=== PATIENT | female | born 1950 | race Caucasian/White ===

== ENCOUNTER → 2018-01-03 12:43 | Outpatient (CLI) | payer MEDICARE, OTHER, SELFPAY ==
--- NOTE | 2018-01-03 | DI.MG.S_ITS ---
BILATERAL DIGITAL SCREENING MAMMOGRAM 3D/2D WITH CAD: 01/03/2018 CLINICAL: Routine screening. Family history of breast cancer. Comparison is made to exams dated: 12/20/2016 mammogram - [facility], 11/01/2014 mammogram, and 10/29/2013 mammogram - [facility]. The tissue of both breasts is heterogeneously dense. This may lower the sensitivity of mammography. Current study was also evaluated with a Computer Aided Detection (CAD) system. There are clustered calcifications in the right breast central to the nipple anterior depth. There also are clustered calcifications in the right breast anterior depth lateral region seen on the craniocaudal view only. No other significant masses, calcifications, or other findings are seen in either breast. IMPRESSION: INCOMPLETE: NEEDS ADDITIONAL IMAGING EVALUATION The clustered calcifications in the right breast central to the nipple anterior depth are indeterminate. Spot magnification views are recommended. The clustered calcifications in the right breast anterior depth lateral region seen on the craniocaudal view only are indeterminate. Spot magnification views are recommended. This exam was interpreted at Station ID: [id number]. NOTE: For mammograms, a report in lay terms will be sent to the patient. Approximately 15% of breast malignancies will not be visualized mammographically. In the management of a palpable breast mass, a negative mammogram must not discourage biopsy of a clinically suspicious lesion. Electronically Signed By: Constance van/kalani:01/03/2018 17:09:20 letter sent: Additional Imaging Needed ACR BI-RADS Category 0: Incomplete 3340F
== END ==
PROVIDERS: Visit Provider Internal Medicine
DX: Z12.31 Encounter for screening mammogram for malignant neoplasm of breast (principal); Z80.3 Family history of malignant neoplasm of breast
CPT/HCPCS: 77063; 77067

== ENCOUNTER 2018-01-14 13:53 | Day surgery (SDC) | payer MEDICARE, OTHER, SELFPAY ==
[2018-01-14 14:57] VITALS: BP 142/77; PULSE 71; RESP 16; TEMP 36.8; O2SAT 100; BMI 29.7
[2018-01-14] MEDS: SODIUM CHLORIDE 0.9% 1,000 ML 200 ML IV (15:03)
--- NOTE | 2018-01-14 15:11 | PM.HP.1 ---
History of Present Illness Date Patient Seen: 01/14/18 Time Patient Seen: 15:11 Chief complaint: [id number] Narrative: Very pleasant 67-year-old lady who is well known to me from prior visits. Her last colonoscopy was 5 years ago and at that time she had some benign polyps removed. She denies any new problems or symptoms related to the function of her GI tract. She reports she needs colonoscopy as per the health maintenance program. Patient History Family & Social History Family History: Reviewed 01/14/18 by Tika Lewis MD Social History: household members spouse Meds Home Medications Medication Instructions Recorded Confirmed Type citalopram [Celexa] 20 mg PO DAILY 01/14/18 01/14/18 History hydrochlorothiazide 25 mg PO DAILY 01/14/18 01/14/18 History ibuprofen 600 mg PO BID 01/14/18 01/14/18 History levothyroxine [Synthroid] 125 mcg PO DAILY 01/14/18 01/14/18 History losartan 50 mg PO DAILY 01/14/18 01/14/18 History pravastatin 40 mg PO DAILY 01/14/18 01/14/18 History Allergies Allergy/AdvReac Type Severity Reaction Status Date / Time codeine Allergy Severe Wheezing Verified 01/14/18 14:46 Penicillins Allergy Severe Hives Verified 01/14/18 14:46 Sulfa (Sulfonamide Allergy Severe Hives Verified 01/14/18 14:46 Antibiotics) Review of Systems Review of Systems All systems reviewed & are unremarkable except as noted in HPI and below Exam Vital Signs (past 8 hours): - 01/14/18 14:57 Temperature 98.2 F Pulse Rate 71 Respiratory Rate 16 Blood Pressure 142/77 H Pulse Oximetry 100 Oxygen Delivery Method Room Air Narrative Exam Narrative: Very pleasant well-nourished well-developed lady in no distress HEENT: Normocephalic atraumatic, pupils equal round reactive to light accommodation with anicteric sclera Lungs: Clear to auscultation bilaterally Heart: Regular rate and rhythm without murmur or gallop Abdomen: Soft, nontender, active bowel sounds Extremities: Warm and well perfused without edema Assessment & Plan Plan: Assessment/Plan Narrative: Estela 67-year-old lady here for a screening colonoscopy due to a history of colon polyps. We discussed the risks and benefits of the procedure and she has expressed a desire to complete it today
[2018-01-14 15:45] VITALS: BP 120/79; PULSE 72; RESP 11; TEMP 36.6; O2SAT 95
--- NOTE | 2018-01-14 15:45 | PM.OP.1 ---
Operative Date/Time/Diagnoses Date of procedure: 01/14/18 Time of procedure: 15:45 Pre-op diagnosis: Personal history of colon polyps Post-op diagnosis: same Procedure & Clinicians Procedure: Colonoscopy to the cecum Same procedure as scheduled: Yes Indications: Last colonoscopy 5 years ago Surgeon: Tika Lewis Anesthesia Type: Sedation (Versed 8 mg; fentanyl 250 mcg) Operative Notes Findings: 1. Excellent prep 2. No polyps or mass lesions 3. No AV malformations 4. Mildly tortuous sigmoid colon 5. Minimal sigmoid diverticulosis 6. Grade 1-2 internal hemorrhoids 7. Essentially normal colonoscopy for a Closure Type: not applicable Specimen(s): none sent Procedure in detail: After obtaining informed consent, the patient was brought to the GI suite and placed in the left lateral decubitus position on the examination table. After placement of appropriate monitors, the patient was given incremental doses of Versed and Fentanyl until an appropriate level of sedation was achieved. A time out was held per SCOAP protocol. A digital rectal examination was performed and did not reveal any masses or obstructing lesions. The colonoscope was gently passed into the patient's anus and the entire colon navigated to the level of the cecum with moderate difficulty due to colon tortuosity. Once in the cecum, the scope was withdrawn being sure to go before and beyond all mucosal folds and prominences and get an excellent examination. The findings are noted above. At the level of the rectal vault, the scope was retroflexed and the internal anal canal was examined. The scope was straightened and air aspirated from the colon. The instrument was removed from the patient's body and the procedure was concluded. The patient was allowed to awaken from sedation without difficulty and taken to the post-anesthesia care unit in good condition. Total sedation time 28 min Total colonoscopy withdrawal time 11 min Complications: none Condition: stable Disposition: PACU Plan for aftercare: 1. Discharge to home 2. Plan for next colonoscopy in 5 years or as clinically indicated
[2018-01-14] MEDS: fentaNYL 250 MCG/5 ML INJ IV (15:46)
[2018-01-14] MEDS: MIDAZOLAM 5 MG/5 ML VIAL IV (15:46)
[2018-01-14 15:50] VITALS: BP 116/66; PULSE 70; RESP 11; O2SAT 95
[2018-01-14 15:55] VITALS: BP 110/62; PULSE 72; RESP 10; TEMP 36.8; O2SAT 95
[2018-01-14 16:07] VITALS: BP 103/66; PULSE 70; RESP 10; TEMP 36.8; O2SAT 95
== END 2018-01-14 16:17 | disposition home or self-care (01) ==
PROVIDERS: Visit Provider Surgery
PROC: 0DJD8ZZ Inspection of Lower Intestinal Tract, Via Natural or Artificial Opening Endoscopic (ICD-10-PCS; CPT 45378; principal; 2018-01-14 15:00)
DX: Z86.010 Personal history of colon polyps (principal); K57.30 Diverticulosis of large intestine without perforation or abscess without bleeding; K64.1 Second degree hemorrhoids
CPT/HCPCS: G0105; 99152; 99153; J2250; J3010

== ENCOUNTER → 2018-01-17 08:44 | Outpatient (CLI) | payer MEDICARE, OTHER, SELFPAY ==
--- NOTE | 2018-01-17 | DI.MG.S_ITS ---
UNILATERAL RIGHT DIGITAL DIAGNOSTIC MAMMOGRAM 3D/2D WITH ADDITIONAL VIEWS: 01/17/2018 CLINICAL: Routine screening. Family history of breast cancer. Comparison is made to exams dated: 01/03/2018 mammogram, 12/20/2016 mammogram - [facility], and 11/01/2014 mammogram - [facility]. The tissue of right breast is heterogeneously dense. This may lower the sensitivity of mammography. The clustered calcifications in the right breast central to the nipple anterior depth are not seen in additional views and likely represent artifact on generated views. The clustered calcifications in the right breast anterior depth lateral region seen on the craniocaudal view only are not seen in additional views and likely represent artifact on generated views. No other significant masses or calcifications are seen in the breast. IMPRESSION: There is no mammographic evidence of malignancy. Return to annual mammogram screening schedule is recommended.(01/04/2019) This exam was interpreted at Station ID: [id number]. NOTE: For mammograms, a report in lay terms will be sent to the patient. Approximately 15% of breast malignancies will not be visualized mammographically. In the management of a palpable breast mass, a negative mammogram must not discourage biopsy of a clinically suspicious lesion. Electronically Signed By: Constance Adams M.D. lk/:01/17/2018 09:47:36 letter sent: Normal Exam ACR BI-RADS Category 2: Benign Finding(s) 3342F
== END ==
PROVIDERS: Visit Provider Internal Medicine
DX: R92.8 Other abnormal and inconclusive findings on diagnostic imaging of breast (principal); Z80.3 Family history of malignant neoplasm of breast
CPT/HCPCS: 77065; G0279

== ENCOUNTER → 2018-03-24 11:14 | Outpatient (CLI) | payer MEDICARE, OTHER, SELFPAY | PROVIDERS: PCP Internal Medicine; Visit Provider Internal Medicine | DX: R05 Cough (principal); R09.82 Postnasal drip ==

== ENCOUNTER → 2018-03-28 10:23 | Outpatient (CLI) | payer MEDICARE, OTHER, SELFPAY ==
--- NOTE | 2018-03-28 | DI.CT.S_ITS ---
PROCEDURE: CT SINUS SCREEN WO CON INDICATIONS: SINUSITIS TECHNIQUE: Noncontrast 3.0 mm axial images acquired from the frontal sinuses to the mid-sella, with coronal and sagittal reformats. For radiation dose reduction, the following was used: automated exposure control, adjustment of mA and/or kV according to patient size. COMPARISON: None. FINDINGS: Image quality: Excellent. Maxillary Sinuses: No bony remodeling or destruction. Sinuses are clear. Ethmoid Air Cells: No bony remodeling or destruction. Sinuses are clear. Sphenoid Sinuses: No bony remodeling or destruction. Sinuses are clear. Frontal Sinuses: No bony remodeling or destruction. Sinuses are clear. Ostiomeatal Complexes: Ostiomeatal complexes are patent, yet they are constitutionally narrowed, with bilateral Gerardo cells. Miscellaneous: Visualized intra-orbital contents are normal. 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 There is moderate leftward nasal septal deviation. IMPRESSION: No significant active paranasal sinus disease is seen. Constitutionally narrowed ostiomeatal complexes, with bilateral Gerardo cells. Bilateral sabi bullosa. Moderate leftward nasal septal deviation. Dictated by: Kana Wilson M.D. on 03/28/2018 at 10:11 Approved by: Kana Wilson M.D. on 03/28/2018 at 10:13
== END ==
PROVIDERS: PCP Internal Medicine; Visit Provider Internal Medicine
DX: J32.9 Chronic sinusitis, unspecified (principal); J34.3 Hypertrophy of nasal turbinates; J34.2 Deviated nasal septum; R05 Cough; J30.9 Allergic rhinitis, unspecified
CPT/HCPCS: 70486

== ENCOUNTER → 2018-11-25 09:05 | Outpatient (CLI) | payer MEDICARE, OTHER, SELFPAY ==
--- NOTE | 2018-11-25 | DI.ECHO.S_ITS ---
[facility] +---------+ : : [address] : : : : [address] : : : : Phone: [phone]+ Echocardiogram Report + + :Name: YAYO GUO Study Date: 11/25/2018 Height: 66 in : :[facility] Exam Location: IS Weight: 195 lb : : Gender: Female BSA: 2.0 m2 : :: 1950 Age: 68 yrs BP: 132/84 mmHg: :Reason For Study: SHORTNESS OF BREATH : : Performed By: Star Mak : :Referring: LAM ALLEN : + + Interpretation Summary The left ventricle is normal in size. The ejection fraction is estimated to be 60-65%. The right ventricle is normal in size and function. There is mild aortic regurgitation. The IVC is of normal diameter and collapses greater than 50% with a sniff. This suggests a low right atrial pressure of 3 mm Hg. Procedure: A two-dimensional transthoracic echocardiogram with color flow and Doppler was performed. The study quality was technically adequate. There is no prior echocardiogram noted for this patient. The patient was in normal sinus rhythm during the exam. Left Ventricle: The left ventricle is normal in size. Proximal septal thickening is noted. There is no echo evidence for significant left ventricular outflow tract obstruction. There is no thrombus. The ejection fraction is estimated to be 60-65%. There are no focal wall motion abnormalities. Diastolic parameters suggest a relaxation abnormality of the left ventricle, consistent with probable normal filling pressures. Right Ventricle: The right ventricle is normal in size and function. Atria: The left atrium is mildly dilated. Right atrial size is normal. The interatrial septum is intact with no evidence for an atrial septal defect. Mitral Valve: The mitral valve leaflets are slightly calcified. There is trace mitral regurgitation. Aortic Valve: The aortic valve is trileaflet. The aortic valve opens well. There is mild aortic regurgitation. Tricuspid Valve: The tricuspid valve is normal in structure and function. Pulmonary artery pressures cannot be estimated because of the lack of a measurable TR jet velocity. There is trace tricuspid regurgitation. Pulmonic Valve: The pulmonic valve is normal in structure and function. There is trace pulmonic regurgitation. Great Vessels: The aortic root is normal size. The dimensions of the ascending aorta are normal. The pulmonary artery is normal size. The IVC is of normal diameter and collapses greater than 50% with a sniff. This suggests a low right atrial pressure of 3 mm Hg. Pericardium/ Pleura There is no pericardial effusion. There is no pleural effusion. MMode/2D Measurements & Calculations LVIDd: 4.5 cm LVOT diam: 2.1 cm LVIDs: 2.8 cm Ao root diam: 2.8 cm FS: 38.7 % Aortic Jxn: 2.2 cm EPSS: 0.31 cm asc Aorta Diam: 3.4 cm IVSd: 1.1 cm Ao Arch Diam (Prox Trans): 2.4 cm LVPWd: 0.91 cm LV levin. diameter/BSA (cm/m^2): 2.3 LV sys. diameter/BSA (cm/m^2): 1.4 LA dimension: 4.2 cm RA long axis: 5.0 cm LA A2 area: 20.8 cm2 RA area: 16.4 cm2 LA A4 area: 21.5 cm2 RA vol: 45.7 ml LA length (vol): 5.1 cm RA : 23.1 ml/m2 LA vol: 74.6 ml IVC diam: 1.7 cm LA vol index: 37.7 ml/m2 Doppler Measurements & Calculations Ao V2 max: 160.6 cm/sec LVOT Max Avila: 107.8 cm/sec Ao V2 mean: 118.0 cm/sec LV V1 max P.7 mmHg Ao max P.3 mmHg LV V1 VTI: 22.8 cm Ao mean P.0 mmHg TIMOTHY(I,D): 2.3 cm2 Ao V2 VTI: 34.0 cm TIMOTHY(V,D): 2.3 cm2 sev ratio: 0.67 TIMOTHY indexed to BSA (cm^2/m^2): 1.2 AI P1/2t: 531.8 msec AI dec slope: 264.1 cm/sec2 MV E max avila: 75.8 cm/sec PA V2 max: 101.2 cm/sec MV A max avila: 90.0 cm/sec PA V2 mean: 74.3 cm/sec MV E/A: 0.84 PA mean P.4 mmHg Med Peak E' Avila: 5.9 cm/sec PA pr(Accel): 54.0 mmHg E/E' med: 12.9 PA Accel Time: 0.04 sec Lat Peak E' Avila: 7.2 cm/sec E/E' lat: 10.5 E/e' average: 11.7 MV dec time: 0.25 sec SV(LVOT): 79.3 ml Reading Physician:01:41 PM
== END ==
PROVIDERS: PCP Physician Assistant; Visit Provider Physician Assistant
DX: I35.1 Nonrheumatic aortic (valve) insufficiency (principal); R06.02 Shortness of breath
CPT/HCPCS: 93306

== ENCOUNTER → 2019-01-26 10:53 | Outpatient (CLI) | payer MEDICARE, OTHER, SELFPAY ==
--- NOTE | 2019-01-30 16:13 | PM.PFT.1 ---
Pulmonary Function Test Referral & Results Date Patient Seen: 01/26/19 Requesting provider: Crescencio Lamas Results: The spirometry demonstrates an FVC of 2.57 L which is 76% of predicted. The FEV1 was measured at 1.96 L which is 76% of predicted. The FEV1/FVC ratio was 76 which is 90% of predicted. Following the administration of bronchodilator there was a 23% improvement in FEF 25-75%. Lung volumes show an SVC of 2.80 L which is 89% of predicted. The diffusing capacity was measured at 24.16 which is 89% of predicted. No hemoglobin value was provided, so no correction for potential anemia could be made, if appropriate. The maximum voluntary ventilation was reduced Interpretation: This study demonstrates mild obstructive lung disease based on reduction FEV1. There is minimal evidence of benefit following bronchodilator particularly small airway flow based on improvement in FEF 25-75% as above There may be minimal restrictive lung disease present as well based on minimal reduction in SVC Diffusing capacity is minimally reduced suggesting an element of disease at the capillary alveolar level as well Clinical correlation suggested
== END ==
PROVIDERS: PCP Physician Assistant; Visit Provider Internal Medicine Cardiovascular Disease
DX: R06.09 Other forms of dyspnea (principal); J98.8 Other specified respiratory disorders
CPT/HCPCS: 94060; 94726; 94729

== ENCOUNTER → 2020-03-01 12:03 | Outpatient (CLI) | payer MEDICARE, OTHER, SELFPAY ==
--- NOTE | 2020-03-01 12:05 | DI.MG.S_ITS ---
BILATERAL DIGITAL SCREENING MAMMOGRAM 3D/2D WITH CAD: 03/01/2020 CLINICAL: Routine screening. Family history of breast cancer. Comparison is made to exams dated: 01/17/2018 mammogram, 01/03/2018 mammogram, 12/20/2016 mammogram - [facility], 11/01/2014 mammogram, 10/29/2013 mammogram, and 06/16/2012 mammogram - [facility]. There are scattered fibroglandular elements in both breasts. Current study was also evaluated with a Computer Aided Detection (CAD) system. No significant masses, calcifications, or other findings are seen in either breast. There has been no significant interval change. IMPRESSION: NEGATIVE There is no mammographic evidence of malignancy. A 1 year screening mammogram is recommended. This exam was interpreted at Station ID: [id number]. NOTE: For mammograms, a report in lay terms will be sent to the patient. Approximately 15% of breast malignancies will not be visualized mammographically. In the management of a palpable breast mass, a negative mammogram must not discourage biopsy of a clinically suspicious lesion. Electronically Signed By: Mathieu edwards/kalani:03/01/2020 17:03:52 letter sent: Normal Exam ACR BI-RADS Category 1: Negative 3341F
== END ==
PROVIDERS: PCP Physician Assistant; Referring Provider Physician Assistant; Visit Provider Physician Assistant
DX: Z12.31 Encounter for screening mammogram for malignant neoplasm of breast (principal); Z80.3 Family history of malignant neoplasm of breast
CPT/HCPCS: 77063; 77067

== ENCOUNTER → 2021-04-11 15:12 | Outpatient (CLI) | payer MEDICARE, OTHER, SELFPAY ==
--- NOTE | 2021-04-11 15:14 | DI.MG.S_ITS ---
BILATERAL DIGITAL SCREENING MAMMOGRAM 3D/2D WITH CAD: 04/11/2021 CLINICAL: Routine screening. Family history of breast cancer. Comparison is made to exams dated: 03/01/2020 mammogram, 01/17/2018 mammogram, 01/03/2018 mammogram, and 12/20/2016 mammogram - [facility]. There are scattered fibroglandular elements in both breasts. Current study was also evaluated with a Computer Aided Detection (CAD) system. No significant masses, calcifications, or other findings are seen in either breast. There has been no significant interval change. IMPRESSION: NEGATIVE There is no mammographic evidence of malignancy. A 1 year screening mammogram is recommended. This exam was interpreted at Station ID: [id number]. NOTE: For mammograms, a report in lay terms will be sent to the patient. Approximately 15% of breast malignancies will not be visualized mammographically. In the management of a palpable breast mass, a negative mammogram must not discourage biopsy of a clinically suspicious lesion. Electronically Signed By: Valdemar guido/kalani:04/11/2021 16:47:20 letter sent: Normal Exam ACR BI-RADS Category 1: Negative 3341F
== END ==
PROVIDERS: PCP Nurse Practitioner; Referring Provider Nurse Practitioner; Visit Provider Nurse Practitioner
DX: Z12.31 Encounter for screening mammogram for malignant neoplasm of breast (principal); Z80.3 Family history of malignant neoplasm of breast
CPT/HCPCS: 77063; 77067

== ENCOUNTER → 2022-06-04 10:55 | Outpatient (CLI) | payer MEDICARE, OTHER, SELFPAY ==
--- NOTE | 2022-06-04 | DI.MG.S_ITS ---
BILATERAL DIGITAL SCREENING MAMMOGRAM 3D/2D WITH CAD: 06/04/2022 CLINICAL: Routine screening. Family history of breast cancer. Comparison is made to exams dated: 04/11/2021 mammogram, 03/01/2020 mammogram, 01/03/2018 mammogram - [facility], and 11/01/2014 mammogram - [facility]. There are scattered areas of fibroglandular density in both breasts (category b / 25%-50% glandular tissue). Current study was also evaluated with a Computer Aided Detection (CAD) system. No significant masses, calcifications, or other findings are seen in either breast. There has been no significant interval change. IMPRESSION: NEGATIVE There is no mammographic evidence of malignancy. A 1 year screening mammogram is recommended. Based on the Tyrer Cuzick model (a risk assessment model) the patient's lifetime risk is 5.9% and her 10 year risk is 3.5%. According to the ACR, ACS, and NCCN guidelines, an annual breast MRI exam along with mammogram is recommended if the patient's lifetime risk is 20% or greater. This exam was interpreted at Station ID: [id number]. NOTE: For mammograms, a report in lay terms will be sent to the patient. Approximately 15% of breast malignancies will not be visualized mammographically. In the management of a palpable breast mass, a negative mammogram must not discourage biopsy of a clinically suspicious lesion. Electronically Signed By: Mathieu edwards/kalani:06/04/2022 13:17:13 letter sent: Normal Exam ACR BI-RADS Category 1: Negative 3341F
== END ==
PROVIDERS: PCP Nurse Practitioner; Referring Provider Nurse Practitioner; Visit Provider Nurse Practitioner
DX: Z12.31 Encounter for screening mammogram for malignant neoplasm of breast (principal); Z80.3 Family history of malignant neoplasm of breast
CPT/HCPCS: 77063; 77067

== ENCOUNTER 2022-10-01 12:04 | Day surgery (SDC) | payer MEDICARE, OTHER, SELFPAY ==
--- NOTE | 2022-10-01 | PATH_ITS ---
[facility] Accession Number: [id number] No. of containers..03 Tissue . 01 Material submitted: . PART A: colon - CECUM POLYP PART B: colon - ASCENDING COLON POLYP PART C: colon - SIGMOID POLYP . 01 Diagnosis: A. Cecal Polyp, Biopsy: Tubular adenoma. . B. Ascending Colon Polyp, Biopsy: Tubular adenoma. . C. Sigmoid Colon Polyp, Biopsy: Benign fibroblastic polyp. No evidence of malignancy. [facility] 10/05/2022 1438 Local . 01 Electronically signed: . Pretty Sheets MD, Pathologist NPI- [id number] . 01 Gross description: . Part A: CECUM POLYP: Received in formalin is 1 fragment(s) of horowitz, soft tissue measuring 0.2 x 0.2 x 0.2 cm submitted entirely in 1 cassette(s) Part B: ASCENDING COLON POLYP: Received in formalin are 3 fragment(s) of horowitz, soft tissue measuring 0.2 x 0.2 x 0.2 cm to 0.4 x 0.4 x 0.4 cm submitted entirely in 1 cassette(s) Part C: SIGMOID POLYP: Received in formalin is 1 fragment(s) of horowitz, soft tissue measuring 0.4 x 0.4 x 0.4 cm submitted entirely in 1 cassette(s) /DALY 10/04/2022 0049 Local . 01 Microscopic: . C. The lesional spindled cells are negative for smooth muscle actin, S100, and DOG1, providing no evidence of leiomyoma, Schwann cell neoplasm, or gastrointestinal stromal tumor, respectively, and supporting the diagnosis of benign fibroblastic polyp. All controls stain as expected. . * This test was developed and its performance characteristics determined by [facility]. It has not been cleared or approved by the U.S. Food and Drug Administration. The FDA has determined that such clearance or approval is not necessary. This test is used for clinical purposes. It should not be regarded as investigational or for research. . 01 Pathologist provided ICD-10: D12.0, D12.2, D12.5 . 01 CPT . 263632, 074098, J20865, T78251 Specimen Comment: A courtesy copy of this report has been sent to [phone] Performed at: 01 [facility] [address] [place] [address], [place], [place] [id number] MD Valdemar Mccall MD Phone: [phone]
[2022-10-01 12:45] VITALS: BP 148/78; PULSE 62; RESP 17; TEMP 36.6; O2SAT 97; BMI 30.7
[2022-10-01] MEDS: LACTATED RINGERS 1,000 ML 100 ML IV (12:58)
--- NOTE | 2022-10-01 13:42 | PM.HP.1 ---
History of Present Illness History of Present Illness Date Patient Seen: 10/01/22 Time Patient Seen: 13:43 Chief complaint: Colonoscopy Narrative: Personal history of colon polyps. [facility] Medical History Hypercholesteremia Hypertension Hypothyroidism Surgical History H/O cardiac catheterization History of bladder surgery History of bunionectomy History of total abdominal hysterectomy Hx of appendectomy S/P rotator cuff repair Social History household members: spouse Smoking Status: Never smoker alcohol intake: current Meds Home Medications and Allergies Home Medications Medication Instructions Recorded Confirmed Type citalopram 20 mg tablet (Celexa) 20 mg PO DAILY 01/14/18 10/01/22 History hydrochlorothiazide 25 mg tablet 25 mg PO DAILY 01/14/18 10/01/22 History ibuprofen 600 mg tablet 600 mg PO BID PRN Pain (Scale 01/14/18 10/01/22 History Score 1-3) levothyroxine 125 mcg tablet 125 mcg PO DAILY 01/14/18 10/01/22 History (Synthroid) losartan 50 mg tablet 50 mg PO DAILY 01/14/18 10/01/22 History Allergies Allergy/AdvReac Type Severity Reaction Status Date / Time codeine Allergy Severe Wheezing Verified 01/14/18 14:46 Penicillins Allergy Severe Hives Verified 01/14/18 14:46 Sulfa (Sulfonamide Allergy Severe Hives Verified 01/14/18 14:46 Antibiotics) Review of Systems Review of Systems ROS: Yes All systems reviewed with the patient and are negative except as otherwise documented Exam Vital Signs (past 8 hours): - 10/01/22 12:45 Temperature 97.8 F Pulse Rate 62 Respiratory Rate 17 Blood Pressure 148/78 H Pulse Oximetry 97 Oxygen Delivery Method Room Air Oxygen Delivery Method Room Air Const General: cooperative HENMT Head: normal to inspection Eyes General: appearance normal, both eyes and all related structures Neck Neck: normal visual inspection Chest Chest: normal inspection of the chest Resp Effort & Inspection: normal respiratory effort Cardio Rate: regular rate GI Inspection: normal to inspection Skin General: no rashes or lesions noted Neuro General: patient alert and patient awake Extrem General: normal to inspection and no pedal edema Psych Appearance: grossly normal Assessment & Plan Assessment & Plan narrative: 72-year-old female a family history of multiple second-degree relatives with colon cancer and personal history of colon polyps here for colon cancer screening. Colonoscopy is pursued today.
--- NOTE | 2022-10-01 13:44 | PM.PREOP ---
Pre-operative Note Interval Note History & Physical reviewed/Exam performed by Physician: Yes Changes to H&P: No ASA Class (for procedural sedation): II
--- NOTE | 2022-10-01 14:51 | PM.OP.COLON ---
Operative Date/Time/Diagnoses Date of procedure: 10/01/22 Time of procedure: 14:51 Pre-op diagnosis: Personal history of colon polyps family history of colon cancer Post-op diagnosis: same Procedure & Clinicians Study performed: Colonoscopy with hot snare polypectomy, cold snare polypectomy, and cold forceps polypectomy. Same procedure as scheduled: Yes Indications: Personal history of colon polyps family history of colon cancer Surgeon: Riccardo Latif Procedure Notes SCOAP/Timeout: Done Procedure in detail: After the risks and benefits were explained, written and verbal informed consent was obtained. The patient was brought into the procedure room and placed into the left lateral decubitus position. Please see anesthesia notes for sedation details. Digital rectal examination was accomplished. The scope was introduced into the patient and advanced under direct visualization to the cecum as identified by the appendiceal orifice and ileocecal valve. The scope was slowly withdrawn to carefully examine the mucosa for any defects or lesions. Comprehensive imaging was accomplished throughout the rectum including the dentate line. The colon was decompressed, the scope was then removed from the patient who tolerated the procedure well. Pediatric colonoscope Bowel prep adequate Scope withdrawal time: 20 minutes Sedation minutes: 27 Complications: none Impression: There was diverticulosis from the sigmoid up through the splenic flexure. In the cecum there was a diminutive polyp removed with cold forceps. In the ascending colon there were 3 polyps. Two of these were removed with cold snare and a 3rd slightly larger 7 mm polyp was removed with hot snare. In the sigmoid colon there was an approximately 7 mm polyp removed with hot snare. No additional pathology was appreciated throughout. Patient had grade 2 internal hemorrhoids. Endoscopic diagnosis 1. Grade 2 hemorrhoids 2. Diverticulosis 3. Multiple colon polyps Post-procedure Plan for aftercare: 1. Await histopathology. 2. Repeat colonoscopy 3 years. Disposition: PACU
[2022-10-01 14:56] VITALS: BP 127/64; PULSE 56; RESP 14; TEMP 36.4; O2SAT 94
[2022-10-01 15:00] VITALS: BP 108/63; PULSE 62; RESP 13; O2SAT 93
[2022-10-01 15:06] VITALS: BP 131/100; PULSE 54; RESP 18; O2SAT 97
[2022-10-01 15:10] VITALS: BP 161/77; PULSE 61; RESP 15; TEMP 36.5; O2SAT 98
== END 2022-10-01 15:28 | disposition home or self-care (01) ==
PROVIDERS: PCP Nurse Practitioner; Referring Provider Internal Medicine Gastroenterology; Visit Provider Internal Medicine Gastroenterology
PROC: 0DJD8ZZ Inspection of Lower Intestinal Tract, Via Natural or Artificial Opening Endoscopic (ICD-10-PCS; CPT 45378; principal; 2022-10-01 13:30)
DX: Z12.11 Encounter for screening for malignant neoplasm of colon (principal); Z86.010 Personal history of colon polyps; Z80.0 Family history of malignant neoplasm of digestive organs; K57.30 Diverticulosis of large intestine without perforation or abscess without bleeding; K64.1 Second degree hemorrhoids; D12.0 Benign neoplasm of cecum; D12.2 Benign neoplasm of ascending colon
CPT/HCPCS: 45385; 45380; J2704

== ENCOUNTER → 2023-07-31 10:43 | Outpatient (CLI) | payer MEDICARE, OTHER, SELFPAY ==
--- NOTE | 2023-07-31 10:46 | DI.RAD.S_ITS ---
PROCEDURE: FL BARIUM SWALLOW INDICATIONS: Dysphagia, unspecified COMPARISON: None. FINDINGS: Function: Mild retention of contrast in the esophagus. This clears with subsequent fluid boluses. The esophagus appears somewhat patulous. There is normal transit of a calibrated barium tablet through the esophagus into the stomach. Morphology: No mucosal abnormality identified. Single contrast views show no esophageal strictures, extrinsic mass effects, or diverticula. Limited images of the stomach demonstrate normal appearance. IMPRESSION: No prince aspiration. The esophagus is somewhat patulous. Mild retention of fluid in the esophagus. Please see separately dictated speech pathologist's report. Dictated by: Mathieu Ortega M.D. on 07/31/2023 at 17:08 Approved by: Mathieu Ortega M.D. on 07/31/2023 at 17:10
--- NOTE | 2023-07-31 13:08 | ST.SWALLOW ---
Visit Care Team Role Provider Type BLAIRE Carlson Attending Provider Non-Staff Primary Care Provider Referring Provider Specialty: Nursing Address: [facility] [address], [address], [place], [address] Email: Modified Barium Swallow Study [employer] Modified Barium Swallow Study Start: 07/31/23 12:10 Freq: Status: Active Protocol: Document 07/31/23 12:11 LNK (Rec: 07/31/23 13:08 LNK [id number]) Modified Barium Swallow Study Total Time Visit Start Time 11:00 Visit Stop Time 11:30 Total Visit Minutes 30 Referral Referring Physician BLAIRE Haddad Reason for Referral frequent cough; dysphagia Setting Setting Outpatient Care Patient Information Identification Type Name,Date of Patient History Pt was seen for a Modified Barium Swallow study secondary to c/o frequent coughing when eating or drinking over the past 10 years. Pt also noted frequent PND as well as a possibility of allergies ( scheduled to see administrative office manager next month). Pt denied PMH of neurological diagnoses and injury or surgery in neck area. She also denied GERD diagnosis; however , noted that about 3-4 years ago, she tried Prilosec re: her cough, but noted no change with the medication and stopped taking it. Subjective Observations Pt entered the room stating she was anxious as she had a negative experience with barium as a young child. She was reassured that she her fears were recognized and her questions were answered. The procedures and instructions were described for the pt who indicated she understood and agreed to proceed. Patient Positioning Position View Lat-A/P Imaging Lateral View Textures Administered Trials Presented Thin Liquid via Spoon (IDDSI 0 ),Thin Liquid via Cup (IDDSI 0 ),Extremely Thick Liquid via Spoon (IDDSI 4),Regular (IDDSI 7) Barium Tablet Yes The IDDSI Framework Protocol: IDDSI.1 Oral Impairment Source: The Modified Barium Swallow Impairment Profile (MBSImP??) Lip Closure No labial escape Tongue Control During Bolus Hold Cohesive bolus between tongue to palatal seal Bolus Preparation/Mastication Timely & efficient chewing & mashing Bolus Transport/Lingual Motion Brisk tongue motion Oral Residue Trace residue lining oral structures Location Tongue Initiation of Pharyngeal Swallow Bolus head in valleculae Additional Oral Impairment Observations Pt OME and DKS were observed to be WNL. Natural dentition was noted and in good hygiene. Mastication demonstrated rotary chew pattern with good bolus preparation/formation, control and AP transition. Pharyngeal Impairment Source: The Modified Barium Swallow Impairment Profile (MBSImP??) Soft Palate Elevation No bolus between soft palate & pharyngeal wall Laryngeal Elevation Part.sup.move.thyroid cart/ part.approx.arytenoids to epiglot.petiole Anterior Hyoid Excursion Partial anterior movement Epiglottic Movement Complete inversion Laryngeal Vestibular Closure Complete; no air/contrast in laryngeal vestibule Pharyngeal Stripping Wave Present - complete Pharyngoesophageal Segment Opening Complete distention & complete duration; no obstruction of flow Tongue Base Retraction No contrast between tongue base & posterior pharyngeal wall Pharyngeal Residue Trace residue within/on pharyngeal structures Location Valleculae Additional Pharyngeal Impairment Overall, pharyngeal phase of Observations swallowing WNL. No obstruction of bolus flow through the pharynx to the esophagus was observed. No laryngeal penetration or tracheal aspiration was observed. Trace pooling of secretions was observed in the valeculla and cleared with subsequent swallow. Observed osrteophytes at C4-C5 and a CP bar in the lateral view of the upper esophagus. A/P View Textures Administered Trials Presented Thin Liquid via Cup (IDDSI 0) The IDDSI Framework Protocol: IDDSI.1 A/P View Observations Pharyngeal Contraction Complete Esophageal Clearance Upright Position Esophageal retention w/ regtrograde flow below pharyngoesoph segment Vocal Fold Function Good Esophageal Function Slowed Clearing,Reverse Peristalsis Additional A-P Observations Noted retention of semi-solid and solid trials within the distal esophagus when position changed to AP. More than one swallow was needed to clear the trial boluses. Possible reverse peristalsis was seen. Esophagus cleared within 1-2 minutes. Barium tablet cleared the esophagus without difficulty. See also separate radiologist report. Clinical Impressions Findings Pt's swallow appeared to be WFL. Possible retro-flow of esophageal contents with retention of semi-solid and solid trials. Subsequent swallows of water cleared the esophagus effectively. No change in pt's diet is recommended. Pt was counseled in increased mindfulness when swallowing. Additionally, pt was instructed to clear mouth and complete swallow before speaking, laughing, etc. Such distractions can increase the chances of coughing/choking when eating/drinking. Patient Appropriate for Therapy No Recommendations Diet Comments No change in diet was recommended at this time. Treatment Plan Recommended Referrals GI Consult Additional Recommended Referrals Pt should discuss referral to GI to r/o GERD/silent GERD with her PCP.
== END ==
PROVIDERS: PCP Nurse Practitioner; Referring Provider Nurse Practitioner; Visit Provider Nurse Practitioner
DX: R13.10 Dysphagia, unspecified (principal)
CPT/HCPCS: 74220